=== PATIENT | female | born 1990 | race African-American/Black ===

== ENCOUNTER 2020-10-18 16:15 | Emergency (ER) | payer MEDICAID, SELFPAY ==
[2020-10-18] MEDS ORDERED: Hydrocodone-Acetamin 15 ML UDCUP ONE (17:30)
[2020-10-18] MEDS ORDERED: Boostrix 0.5 ML (Tdap) VIAL ONE (17:30)
[2020-10-18] MEDS ORDERED: HYDROcodone/Acetaminophen 7.5/325 mg Tablet ONE (17:32)
== END 2020-10-18 17:47 | disposition home or self-care (01) ==
LOC: CSHERS 16:15
DX: T25.221A Burn of second degree of right foot, initial encounter (principal); T31.0 Burns involving less than 10% of body surface; J45.909 Unspecified asthma, uncomplicated; Z23 Encounter for immunization
CPT/HCPCS: 90471; 90715

== ENCOUNTER 2021-10-05 14:45 | Day surgery (SDC) | payer OTHER ==
[2021-10-05 15:12] VITALS: BMI 50.3
[2021-10-05] MEDS ORDERED: hydrALAZINE 20 MG/ML VIAL SLOW IVP PRN (15:50)
[2021-10-05 16:44] LABS: ALT (SGPT) 17 U/L (8-55); AST (SGOT) 19 U/L (5-34); Albumin 3.3 g/dL (3.5-5.0); Alkaline Phosphatase 341 U/L (40-110); Anion Gap 13 mmol/L (10-20); BUN (Urea Nitrogen) 9 mg/dL (7.0-18.7); Bilirubin, Total 0.3 mg/dL (0.2-1.2); Calc. Creatinine Clearance 210 mL/min (70-130); Carbon Dioxide 22 mmol/L (22-29); Chloride 107 mmol/L (98-107); Globulin 3.2 g/dL (2.4-3.5); Glucose 69 mg/dL (70-105); Protein, Total 6.5 g/dL (6.0-8.3); Sodium 138 mmol/L (136-145); Uric Acid 5.1 mg/dL (2.6-6.0)
== END 2021-10-05 20:30 | disposition home or self-care (01) ==
LOC: CSHLD/OP 14:45
PROVIDERS: ATTEND Obstetrics & Gynecology
DX: O13.3 Gestational [pregnancy-induced] hypertension without significant proteinuria, third trimester (principal); O34.33 Maternal care for cervical incompetence, third trimester; O34.219 Maternal care for unspecified type scar from previous cesarean delivery; Z3A.36 36 weeks gestation of pregnancy
CPT/HCPCS: 36415; 80053; 82570; 84156; 84550; 99283

== ENCOUNTER 2022-06-29 10:26 | Emergency (ER) | payer MEDICAID, OTHER | END 2022-06-29 12:22 | disposition home or self-care (01) | LOC: CSHERS 10:26 | DX: L03.213 Periorbital cellulitis (principal); F17.210 Nicotine dependence, cigarettes, uncomplicated | CPT/HCPCS: 99283 ==

== ENCOUNTER 2023-05-02 09:05 | Emergency (ER) | payer OTHER ==
[2023-05-02 10:57] LABS: SARS-CoV-2 NAA Rapid Test Not Detected (NotDetected)
== END 2023-05-02 11:04 | disposition home or self-care (01) ==
LOC: CSHERS 09:05
DX: J18.1 Lobar pneumonia, unspecified organism (principal); F17.210 Nicotine dependence, cigarettes, uncomplicated
CPT/HCPCS: 71046